=== PATIENT | female | born 1995 | race African-American/Black ===

== ENCOUNTER 2017-09-05 18:34 | Emergency (ER) | payer BC, OTHER ==
[~2017-09-05] VITALS: Ht 167.6 cm; Wt 90.7 kg
[2017-09-05] MEDS ORDERED: TIZANIDINE HCL4 MG PO (20:52)
[2017-09-05] MEDS ORDERED: IBUPROFEN 600600 M1 PO (20:52)
== END 2017-09-05 21:11 | disposition home or self-care (01) ==
LOC: ER 18:34
DX: R20.0 Anesthesia of skin (principal)

== ENCOUNTER 2021-09-22 08:11 | Emergency (ER) | payer OTHER ==
[~2021-09-22] VITALS: Ht 157.5 cm; Wt 108.9 kg
[~2021-09-22 08:11] MED LIST: IBUPROFEN 600600 M1 PO; TIZANIDINE HCL4 MG PO
[2021-09-22] MEDS ORDERED: CARAFATE 11 GM/10 M1 PO (09:14)
[2021-09-22 09:45] VITALS: BP 139/73
== END 2021-09-22 09:47 | disposition home or self-care (01) ==
LOC: ER 08:11
DX: R13.19 Other dysphagia (principal)